=== PATIENT | female | born 1995 | race African-American/Black ===

== ENCOUNTER 2016-12-08 11:04 | Emergency (ER) | payer OTHER ==
[~2016-12-08] VITALS: Ht 170.2 cm; Wt 115.0 kg
[~2016-12-08 11:04] MED LIST: AMOX500T PO; MOME17I; PRED20 PO
[2016-12-08 11:05] VITALS: BP 135/65; PULSE 118; RESP 20; TEMP 98.5; O2SAT 99
[2016-12-08] MEDS ORDERED: PREN29TA PO (11:25)
[2016-12-08] MEDS ORDERED: FLINT2 CHEW (11:25)
--- NOTE | 2016-12-08 11:55 | PD ---
HPI Chief Complaint: Cold / Flu Symptoms Time Seen by Provider: 11:20 Travel History International Travel<30 days: No Contact w/Intl Traveler<30days: No Traveled to known affect area: No History of Present Illness HPI Patient is a 21-year-old female presenting to emergency for evaluation of nasal congestion, sore throat, body aches. Patient states her symptoms started on Tuesday. She denies any fevers, nausea, vomiting. She does report lower abdominal pain and cramping last night. Patient is 33 weeks by her own report. She recently moved here from [place] and has no OB to follow up with. She presents to the emergency Department unsure what to take for her cold symptoms. She has been applying Vicks vapor rub to her chest and taking Tylenol as needed. He states the body aches are worse at night when she is trying to rest. PFSH Past Medical History Medical History: Denies Significant Hx Diminished Hearing: No ?: : 0 Social History Alcohol Use: No Tobacco Use: Yes (1 PPD) Substance Use: Yes (MARIJUANA) Allergies-Medications (Allergen,Severity, Reaction): Coded Allergies: No Known Allergies (Unverified , 12/16/15) Reported Meds & Prescriptions Reported Meds & Active Scripts Active Reported Plus Iron 29-1 mg ( Vit-Iron Carbonyl) 1 Tab Tab 1 Tab PO DAILY Flintstones Complete (Iron/Minerals/Multivitamins) 60 Mg Tab 1 Tab CHEW DAILY Review of Systems Except as stated in HPI: all other systems reviewed are Neg General / Constitutional: No: Fever, Chills HENT: Positive: Sore Throat, Congestion, No: Headaches Cardiovascular: Positive: Tachycardia, No: Chest Pain or Discomfort Respiratory: No: Shortness of Breath Gastrointestinal: Positive: Abdominal Pain (lower abdominal cramping last night ), No: Nausea, Vomiting, Diarrhea Genitourinary: No: Dysuria Musculoskeletal: Positive: Myalgias, Cramping Physical Exam Narrative GENERAL: Obese, well-developed, alert female. Resting comfortably in no acute distress. SKIN: Focused skin assessment warm/dry. HEAD: Atraumatic. Normocephalic. EYES: Pupils equal and round. No scleral icterus. No injection or drainage. ENT: No nasal bleeding or discharge. Mucous membranes pink and moist. NECK: Trachea midline. No JVD. CARDIOVASCULAR: Tachycardic. No murmur appreciated. RESPIRATORY: No accessory muscle use. Clear to auscultation. Breath sounds equal bilaterally. GASTROINTESTINAL: Abdomen obese, non-tender, nondistended. Hepatic and splenic margins not palpable. Positive Bowel sounds. MUSCULOSKELETAL: No obvious deformities. No clubbing. No cyanosis. No edema. NEUROLOGICAL: Awake and alert. No obvious cranial nerve deficits. Motor grossly within normal limits. Normal speech. PSYCHIATRIC: Appropriate mood and affect; insight and judgment normal. Data Data Last Documented VS Vital Signs Date Time Temp Pulse Resp B/P Pulse Ox O2 Delivery O2 Flow Rate FiO2 12/08/16 11:05 98.5 118 20 135/65 99 Room Air [facility] Medical Decision Making Medical Screen Exam Complete: Yes Emergency Medical Condition: Yes Interpretation(s) Vital Signs Date Time Temp Pulse Resp B/P Pulse Ox O2 Delivery O2 Flow Rate FiO2 12/08/16 11:05 98.5 118 20 135/65 99 Room Air Differential Diagnosis Viral URI versus pharyngitis versus bronchitis versus viral syndrome versus PE versus other Narrative Course Patient is a 21-year-old female, 33 weeks presenting to the emergency department for evaluation of nasal congestion, sore throat and body aches. Symptoms started on Tuesday. Patient has not taken any acetaminophen today and is afebrile. She is well oxygenated on room air, resting in no acute distress. Lung sounds are clear to auscultation bilaterally. Physical examination and patient presentation is less likely due to pulmonary embolism. It was reassessed after patient had been resting for approximately 15 minutes and continued to be elevated. Patient reported lower abdominal cramping last night, she denies any vaginal bleeding or discharge. She recently moved to the area and has no head of design. She reports having routine care up until this point. Discussed with my attending physician. Patient was encouraged to continue acetaminophen as needed and as directed for fevers or body aches. She was encouraged to continue with symptomatic management. She was advised to obtain kuhk-sky-loarmmh nasal saline wash as well as Nasonex or Flonase and use as directed. She was encouraged to establish care with an head of design for continued routine care. Patient will be transferred to the OB ED at this time. Diagnosis Primary Impression: Upper respiratory infection Qualified Code: J06.9 - Upper respiratory tract infection, unspecified type Additional Impressions: Qualified Code: Z3A.33 - 33 weeks gestation of Tachycardia Referrals: [facility] 1 week Patient Instructions: General Instructions, Upper Respiratory Infection (ED) Additional Instructions: Establish care with an head of design Maintain adequate fluid intake Continue symptomatic management Take pwfc-hdh-omulsix acetaminophen as needed and as directed for body aches, fevers. Return to emergency department immediately for any new or worsening symptoms Med/Other Pt SpecificInfo: No Change to Meds Disposition: 01 DISCHARGE HOME Condition: Stable Hollie Garcia December 08, 2016 11:55
[2016-12-08] MEDS ORDERED: AFRI0.052 EACH NARE (13:40)
[2016-12-08] MEDS ORDERED: TYLE325T PO (13:40)
[2016-12-08] MEDS ORDERED: DEXT5LIQ12 PO (13:40)
[2016-12-08] MEDS ORDERED: ZITHTAB PO (13:40)
[2016-12-08] MEDS ORDERED: CLAR10CA3 PO (13:40)
--- NOTE | 2016-12-08 13:42 | PD ---
HPI Chief Complaint Head cold Date Seen: December 08, 2016 Time Seen: 13:15 Travel History International Travel<30 Days: No Contact w/Intl Traveler<30Days: No Known Affected Area: No History of Present Illness HPI Patient is a 21-year-old at 32 weeks and 5 days presents with cold symptoms. She reports that her symptoms started 2 days ago. They started with a sore throat and pain with swallowing. She then developed sinus congestion and neck pain and aches and pains throughout the rest of her body. She denies any leakage of fluid, vaginal bleeding, contractions. She endorses movement. She endorses some headache and feet swelling. She denies any fever, chills, vision changes, chest pain, shortness of breath, dysuria. Para: 0 : 1 History Past Medical History Narrative Medical Patient reports anemia diagnosed during this . Obstetric History Obstetric History Patient reports that this is her first . It has been uncomplicated thus far. Past Surgical History Surgical History: No Previous Surgery Family History Narrative Family History Patient reports a history of C-sections in her mother for HIV and advanced maternal age. Social History Narrative Social History Patient lives with her grandmother in [place]. Alcohol Use: No Tobacco Use: No Substance Abuse: No Allergies-Medications (Allergen,Severity, Reaction): Coded Allergies: No Known Allergies (Unverified , 12/16/15) Home Meds Active Scripts Acetaminophen (Tylenol)325 Mg Lht940 Mg PO Q4H PRN (pain) #30 TAB Ref 0 Prov:Giancarlo Bruce MD R1 12/08/16 Azithromycin (Zithromax Z-Norm)250 Mg Esvt279 Mg PO DIRECTED #1 DSPK Ref 0 500 MG (2 tabs) day 1, then 1 tab days 2-5. Prov:Giancarlo Bruce MD R1 12/08/16 Oxymetazoline Nasal (Afrin Nasal [place])0.05% Spray2-3 [place] EACH NARE Q12H PRN ( NASAL CONGESTION) #1 BOTTLE Ref 0 Prov:Giancarlo Bruce MD R1 12/08/16 Loratadine (Claritin)10 Mg Cap10 Mg PO DAILY #30 CAP Ref 0 Prov:Giancarlo Bruce MD R1 12/08/16 Dextromethorphan-Guaifenesin Liq (Tussin Dm Max Adult Liq)10-200 Mg/5 Ml Liq5 Ml PO Q4H PRN (CHEST CONGESTION AND/OR COUGH) #120 ML Ref 0 Prov:Giancarlo Bruce MD R1 12/08/16 Reported Medications Vit-Iron Carbonyl ( Plus Iron 29-1 mg)1 Tab Tab1 Tab PO DAILY #30 TAB Ref 0 12/08/16 Wlot-Ythnrfwv-Ibgykmws (Flintstones Complete)60 Mg Tab1 Tab CHEW DAILY #30 TAB Ref 0 12/08/16 Discontinued Scripts Mometasone Furoate (Nasonex)17 Gm Spray1 Spr NA DAILY #1 BOTTLE Prov:Jose York MD 12/16/15 Prednisone (Deltasone)20 Mg Tab20 Mg PO BID #10 TAB Prov:Jose York MD 12/16/15 Amoxicillin 500 Mg Zga390 Mg PO TID #30 CAP Prov:Jose York MD 12/16/15 Review of Systems General / Constitutional: No: Fever, Chills Eyes: No: Blurred Vision, Visual changes HENT: Headaches Cardiovascular: Edema (feet), No: Chest Pain or Discomfort Respiratory: Cough, No: Short of Breath Gastrointestinal: No: Nausea, Vomiting, Diarrhea, Abdominal Pain Genitourinary: No: Dysuria Musculoskeletal: Edema (feet) Skin: No Rash Neurologic: Headache Physical Exam Tachycardic but otherwise afebrile and vital signs stable within normal limits. Vital Signs Date Time Temp Pulse Resp B/P Pulse Ox O2 Delivery O2 Flow Rate FiO2 12/08/16 11:05 98.5 118 20 135/65 99 Room Air Narrative GENERAL: Well-nourished, well-developed obese female patient. SKIN: Warm and dry. HEAD: Normocephalic and atraumatic. EYES: No scleral icterus. No injection or drainage. ENT: No nasal drainage noted. Mucous membranes pink. Airway patent. No erythema or exudates of oropharynx. NECK: Supple, trachea midline. No JVD. CARDIOVASCULAR: Regular rate and rhythm without murmurs, gallops, or rubs. RESPIRATORY: Breath sounds equal bilaterally. No accessory muscle use. ABDOMEN/GI: Abdomen soft, non-tender, bowel sounds present, no rebound, no guarding Gravid to 33 weeks size EXTREMITIES: No cyanosis or edema. BACK: Nontender without obvious deformity. No CVA tenderness. NEUROLOGICAL: Awake and alert. Motor and sensory grossly within normal limits. Five out of 5 muscle strength in all muscle groups. Normal speech. Data Data Vital Signs Reviewed: Yes MDM Plan Patient is a 21-year-old at 32 weeks and 5 days presents with 2 days of cold symptoms. heart tracing category 1, reassuring. No contractions noted on monitor. 1. Viral URI Z-Norm Tylenol as needed Tussionex R Claritin Afrin Encourage by mouth hydration 2. Monitor vital signs Monitor labor status Monitor heart tones D/w Dr. Ibarra. Diagnosis Diagnosis: Primary Impression: Upper respiratory infection Qualified Code: J06.9 - Upper respiratory tract infection, unspecified type Additional Impressions: Qualified Code: Z3A.33 - 33 weeks gestation of Tachycardia Disposition: 01 DISCHARGE HOME Condition: Good Scripts Acetaminophen (Tylenol)325 Mg Ibo004 Mg PO Q4H PRN (pain) #30 TAB Ref 0 Prov:Giancarlo Bruce MD R1 12/08/16 Azithromycin (Zithromax Z-Norm)250 Mg Uome409 Mg PO DIRECTED #1 DSPK Ref 0 500 MG (2 tabs) day 1, then 1 tab days 2-5. Prov:Giancarlo Bruce MD R1 12/08/16 Oxymetazoline Nasal (Afrin Nasal [place])0.05% Spray2-3 [place] EACH NARE Q12H PRN ( NASAL CONGESTION) #1 BOTTLE Ref 0 Prov:Giancarlo Bruce MD R1 12/08/16 Loratadine (Claritin)10 Mg Cap10 Mg PO DAILY #30 CAP Ref 0 Prov:Giancarlo Bruce MD R1 12/08/16 Dextromethorphan-Guaifenesin Liq (Tussin Dm Max Adult Liq)10-200 Mg/5 Ml Liq5 Ml PO Q4H PRN (CHEST CONGESTION AND/OR COUGH) #120 ML Ref 0 Prov:Giancarlo Bruce MD R1 12/08/16 Referrals: [employer] 1 week Patient Instructions: General Instructions, Upper Respiratory Infection (ED) Additional Instructions: Establish care with an technical manager chemical plant Maintain adequate fluid intake Continue symptomatic management Take ofgx-jth-hnqiirg acetaminophen as needed and as directed for body aches, fevers. Return to emergency department immediately for any new or worsening symptoms Departure Forms: Tests/Procedures Giancarlo Bruce MD R1 December 08, 2016 13:42
[2016-12-29] MEDS ORDERED: BREAST PUMP1 MI1 (17:46)
== END 2016-12-08 14:10 | disposition home or self-care (01) ==
LOC: HOBED 11:04 → NEPK 12:19 → HOBED 14:10
DX: J06.9 Acute upper respiratory infection, unspecified (principal); O98.913 Unspecified maternal infectious and parasitic disease complicating pregnancy, third trimester; R00.0 Tachycardia, unspecified; F17.210 Nicotine dependence, cigarettes, uncomplicated; F12.90 Cannabis use, unspecified, uncomplicated; Z3A.33 33 weeks gestation of pregnancy
CPT/HCPCS: 99284

== ENCOUNTER 2017-01-28 10:31 | Inpatient (IN) | payer OTHER ==
[2017-01-28] VITALS (18 sets, daily range): BP systolic 100–139; BP diastolic 39–65; PULSE 56–97; RESP 16–20; TEMP 97.4–98.6; O2SAT 97–98
[~2017-01-28 10:31] MED LIST changes: +AFRI0.052 EACH NARE; -AMOX500T PO; +BREAST PUMP1 MI1; +CLAR10CA3 PO; +DEXT5LIQ12 PO; +FLINT2 CHEW; -MOME17I; -PRED20 PO; +PREN29TA PO; +TYLE325T PO
[2017-01-28] MEDS ORDERED: LACTATED RINGER'S 1000 ML INJ 1,000 ML IV ONE (13:11)
[2017-01-28 13:26] LABS: AUTOMATED NEUTROPHIL # 7.5 TH/MM3 (1.8-7.7); BASOPHIL % 0.4 % (0.0-2.0); EOSINOPHIL % 0.3 % (0.0-4.0); HEMATOCRIT 36.6 % (35.0-46.0); HEMO FLAGS DIFF FINAL; LYMPH % 18.7 % (9.0-44.0); LYMPHOCYTE # 1.9 TH/MM3 (1.0-4.8); MEAN CELL VOLUME 81.7 FL (80.0-100.0); MEAN CORPUSCULAR HEMOGLOBIN 26.6 PG (27.0-34.0); MEAN CORPUSCULAR HGB CONC 32.6 % (32.0-36.0); MONO % 5.8 % (0.0-8.0); NEUT % 74.8 % (16.0-70.0); PLATELET COUNT 306 TH/MM3 (150-450); RED BLOOD COUNT 4.47 MIL/MM3 (4.00-5.30); WHITE BLOOD COUNT 10.1 TH/MM3 (4.0-11.0)
[2017-01-28 13:31] LABS: BLOOD, URINE NEG (NEG); COMMENT (UR) CULT NOT INDICATED; CULTURE IF INDICATED CULT NOT INDICATED; GLUCOSE,URINE NEG (NEG); KETONE, URINE NEG (NEG); MUCUS URINE FEW /lpf (OCC); NITRITE,URINE NEG (NEG); SQUAMOUS EPITHELIAL CELL URINE 3 /hpf (0-5); URINE COLOR YELLOW (YELLW/STRAW)
[2017-01-28] MEDS: LACTATED RINGER'S 1000 ML INJ 1,000 ML IV SCH ×3 (13:41→21:09)
--- NOTE | 2017-01-28 13:53 | HHI.HP ---
HPI Chief Complaint Date Seen: Jan 28, 2017 Time Seen: 13:30 (Seth Bowles MD R1) Travel History International Travel<30 Days: No Contact w/Intl Traveler<30Days: No (Seth Bowles MD R1) History of Present Illness HPI 21-year-old at 40/0 weeks gestation with history of iron deficiency anemia presenting for due to transverse lie and polyhydramnios. She feels well. Denies vaginal bleeding, contractions, leakage of fluid. Endorses movement. (Seth Bowles MD R1) History Past Medical History Narrative Medical Iron deficiency anemia (Seth Bowles MD R1) Obstetric History Obstetric History G1 (Seth Bowles MD R1) Past Surgical History Surgical History: No Previous Surgery (Seth Bowles MD R1) Family History Family History: Negative (Seth Bowles MD R1) Social History Alcohol Use: No Tobacco Use: No Substance Abuse: No (Seth Bowles MD R1) Allergies-Medications (Allergen,Severity, Reaction): Coded Allergies: No Known Allergies (Unverified , 01/14/17) Home Meds Active Scripts Breast Pump 1 Mis Mis #1 Ea .route As Directed Prov:Giancarlo Bruce MD R1 12/29/16 Acetaminophen (Tylenol)325 Mg Xhh278 Mg PO Q4H PRN (pain) #30 TAB Ref 0 Prov:Giancarlo Bruce MD R1 12/08/16 Oxymetazoline Nasal (Afrin Nasal [place])0.05% Spray2-3 [place] EACH NARE Q12H PRN ( NASAL CONGESTION) #1 BOTTLE Ref 0 Prov:Giancarlo Bruce MD R1 12/08/16 Loratadine (Claritin)10 Mg Cap10 Mg PO DAILY #30 CAP Ref 0 Prov:Giancarlo Bruce MD R1 12/08/16 Dextromethorphan-Guaifenesin Liq (Tussin Dm Max Adult Liq)10-200 Mg/5 Ml Liq5 Ml PO Q4H PRN (CHEST CONGESTION AND/OR COUGH) #120 ML Ref 0 Prov:Giancarlo Bruce MD R1 12/08/16 Reported Medications Vit-Iron Carbonyl ( Plus Iron 29-1 mg)1 Tab Tab1 Tab PO DAILY #30 TAB Ref 0 12/08/16 Arlt-Jugbsnzc-Tlgyvhlo (Flintstones Complete)60 Mg Tab1 Tab CHEW DAILY #30 TAB Ref 0 12/08/16 Discontinued Scripts Azithromycin (Zithromax Z-Norm)250 Mg Jmwa757 Mg PO DIRECTED #1 DSPK Ref 0 500 MG (2 tabs) day 1, then 1 tab days 2-5. Prov:Giancarlo Bruce MD R1 12/08/16 Review of Systems Except as stated in HPI: all other systems reviewed are Neg (Seth Bowles MD R1) Physical Exam Narrative GENERAL: Well-nourished, well-developed patient. SKIN: Warm and dry. HEAD: Normocephalic and atraumatic. EYES: No scleral icterus. No injection or drainage. ENT: No nasal drainage noted. Mucous membranes pink. Airway patent. CARDIOVASCULAR: Regular rate and rhythm without murmurs, gallops, or rubs. RESPIRATORY: Breath sounds equal bilaterally. No accessory muscle use. ABDOMEN/GI: Abdomen soft, non-tender, no rebound, no guarding EFW 3800 g FHT's: Category: 1 Baseline: 120 Reactive: Y Variability: moderate Decels: N EXTREMITIES: No cyanosis or edema. NEUROLOGICAL: Awake and alert. Motor and sensory grossly within normal limits. Normal speech. (Seth Bowles MD R1) Data Data Vital Signs Reviewed: Yes Orders Us Ob Repeat/Fu(Growth) (01/28/17 ) Admit To Inpatient (01/28/17 ) Code Status (01/28/17 13:11) Vital Signs (Adult) .ON ADMISSION (01/28/17 13:11) Activity Oob Ad Sandra (01/28/17 13:11) Heart (01/28/17 13:11) Urinary Catheter Management DEYA.Q8H (01/28/17 13:11) ^ Preps (01/28/17 13:11) Scd / Brendon / Foot Pump DEYA.QSHIFT (01/28/17 13:11) ^ Ultrasound For Locatio (01/28/17 13:11) Diet Npo (01/28/17 Lunch) Lactated Ringer's 1000 Ml Inj (Lr 1000 M (01/28/17 13:11) Lactated Ringer's 1000 Ml Inj (Lr 1000 M (01/28/17 13:41) Cefazolin 2 Gm Premix (Ancef 2 Gm Premix (01/28/17 14:15) Citric Acid-Sodium Citrate Liq (Bicitra (01/28/17 14:45) Type And Screen (01/28/17 13:11) Complete Blood Count With Diff (01/28/17 13:11) Urinalysis - C+S If Indicated (01/28/17 13:11) Inpatient Certification (01/28/17 ) Specimen To Be Collected PRN (01/28/17 13:11) Labs Laboratory Tests Test 01/28/17 13:05 White Blood Count 10.1 Red Blood Count 4.47 Hemoglobin 11.9 Hematocrit 36.6 Mean Corpuscular Volume 81.7 Mean Corpuscular Hemoglobin 26.6 Mean Corpuscular Hemoglobin 32.6 Concent Red Cell Distribution Width 16.0 Platelet Count 306 Mean Platelet Volume 7.7 Neutrophils (%) (Auto) 74.8 Lymphocytes (%) (Auto) 18.7 Monocytes (%) (Auto) 5.8 Eosinophils (%) (Auto) 0.3 Basophils (%) (Auto) 0.4 Neutrophils # (Auto) 7.5 Lymphocytes # (Auto) 1.9 Monocytes # (Auto) 0.6 Eosinophils # (Auto) 0.0 Basophils # (Auto) 0.0 CBC Comment DIFF FINAL Differential Comment Urine Color YELLOW Urine Turbidity CLEAR Urine pH 6.0 Urine Specific [place] 1.018 Urine Protein 30 Urine Glucose (UA) NEG Urine Ketones NEG Urine Occult Blood NEG Urine Nitrite NEG Urine Bilirubin NEG Urine Urobilinogen LESS THAN 2.0 Urine Leukocyte Esterase NEG Urine RBC LESS THAN 1 Urine WBC 3 Urine Squamous Epithelial 3 Cells Urine Mucus FEW Microscopic Urinalysis Comment CULT NOT INDICATED (Seth Bowles MD R1) Assessment/Plan Problem List: (1) Transverse lie (2) Polyhydramnios Assessment and Plan 21-year-old at 40/0 weeks gestation presenting for #1 IUP Category 1 tracing, reassuring #2 GBS negative #3 transverse lie with polyhydramnios Ultrasound done today showing transverse lie with back facing upward ( anteriorly) and MEGHAN of 21 - Admit to labor and delivery - Standard preoperative care for - Consents signed dw Dr. Ortega, Dr. Bruce (Seth Bowles MD R1) Collaborating MD Comments Patient at 40 weeks, with macrosomia and back up transverse lie. Plan c- section due to malpresentation. (Chiara Ortega MD) Seth Bowles MD R1 Jan 28, 2017 13:53 Chiara Ortega MD Jan 28, 2017 17:20
[2017-01-28] MEDS ORDERED: ceFAZolin 2 GM PREMIX 50 ML IV SCH (14:15)
[2017-01-28] MEDS ORDERED: OXYTOCIN 10 UNIT/ML AMP ONE (14:24)
[2017-01-28] MEDS ORDERED: CITRIC ACID-SODIUM CITRATE LIQ 30 ML UDC PO SCH (14:45)
[2017-01-28] MEDS ORDERED: EPIDURAL-DIPHENHYDRAMINE HCL 50 MG/ML VIAL IV PUSH PRN (14:50)
[2017-01-28] MEDS ORDERED: EPIDURAL-NALOXONE HCL 0.4 MG/ML AMP IV PRN (14:50)
[2017-01-28] MEDS ORDERED: EPIDURAL-DO NOT ADMINISTER ANTICOAGULANTS PRN (14:50)
[2017-01-28] MEDS ORDERED: EPIDURAL-NO SYSTEMIC NARCOTICS PRN (14:50)
[2017-01-28] MEDS ORDERED: MORPHINE SULFATE PF 10 MG/10 ML VIAL ONE (15:58)
[2017-01-28] MEDS ORDERED: SODIUM CHLORIDE 0.9% FLUSH 10 ML FLUSH IV FLUSH PRN (16:00)
[2017-01-28] MEDS ORDERED: ACETAMINOPHEN 325 MG TAB PO PRN (16:00)
[2017-01-28] MEDS ORDERED: KETOROLAC TROMETHAMINE 60 MG/2 ML (IM) VIAL IM PRN ×2 (16:00)
[2017-01-28] MEDS ORDERED: OXYTOCIN 30 UNITS-500ML PREMIX 500 ML IV ONE (16:00)
[2017-01-28] MEDS ORDERED: ZOLPIDEM TARTRATE 5 MG TAB PO PRN (16:00)
[2017-01-28] MEDS: ONDANSETRON HCL 4 MG/2 ML VIAL IV PUSH PRN ×2 (16:23→21:08)
[2017-01-28] MEDS ORDERED: OXYTOCIN 30 UNITS-500ML PREMIX 500 ML ONE (16:36)
--- NOTE | 2017-01-28 16:38 | PD.OB.DELI ---
Procedure Note Section Procedure Pre Op Diagnosis: (1) Transverse lie Pre Op Diagnosis 40 weeks gestation Post Op Diagnosis: Performed by Chiara Ortega Procedure: Primary Low Transverse Sec Indication for delivery: malposition Informed consent obtained: For anesthesia, For procedure Confirmed correct: Time-out taken Anesthesia: Spinal Medication prior to procedure: Antacids, Antibiotics, IV Monitoring during procedure: Blood pressure monitoring, storage engineer, Pulse oximetry Urinary catheter: Inserted using sterile technique Sterile preparation: Duraprep Position: Supine with wedge to left side Operative Features Skin Incision: Pfannenstiel Uterine Incision: Low transverse w/knife / blunt ext Membranes Ruptured: Artificially, Amount of liquid (copious), Appearance of fluid (clear) Presentation: Transverse lie Time of : 15:19 Delivery of infant: Uneventful, Other (45 second cord clamping delay) Infant: Male One Minute : 8 Five Minute : 9 Weight: 4405 Status of : Viable Placenta delivered: Intact Estimated blood loss: 600 Procedure tolerated: Well Maternal Condition: Stable Condition: Stable (vaccuum utilized with single pull for head delivery) Chiara Ortega MD Jan 28, 2017 16:38
[2017-01-28] MEDS ORDERED: SODIUM CHLORIDE 0.9% FLUSH 10 ML FLUSH IV FLUSH SCH (21:00)
[2017-01-29] VITALS: BP 113/56; PULSE 76; RESP 20; TEMP 98.4
[2017-01-29 01:20] VITALS: RESP 16
[2017-01-29] MEDS ORDERED: OXYTOCIN 30 UNITS-500ML PREMIX 500 ML IV PRN (02:00)
[2017-01-29] MEDS: LACTATED RINGER'S 1000 ML INJ 1,000 ML IV SCH ×2 (03:01→06:57)
[2017-01-29] MEDS: IBUPROFEN 600 MG TAB PO PRN ×4 (03:38→23:59)
[2017-01-29] MEDS: ONDANSETRON HCL 4 MG/2 ML VIAL IV PUSH PRN (03:38)
[2017-01-29 04:00] VITALS: BP 106/55; PULSE 78; RESP 20; TEMP 98.4
[2017-01-29] MEDS: EPIDURAL-DIPHENHYDRAMINE HCL 50 MG CAP PO PRN ×2 (06:24→12:21)
--- NOTE | 2017-01-29 07:53 | HHI.OB ---
Subjective Post Operative Day: 1 Remarks Patient is a 21-year-old delivered at 39 weeks and 6 days. Patient is day 1 after primary for backup transverse lie. Patient reports incisional pain but that her pain is well-controlled. Patient reports not yet eating and not much drinking. She reports a few episodes of nausea and vomiting. Patient reports bleeding like a period. Patient has not passed gas or bowel movements. Patient is walking without lower extremity pain or shortness of breath or chest pain. Patient reports desire for contraception with condoms and bottle and breast-feeding. Objective Vitals/I&O Vital Signs Date Time Temp Pulse Resp B/P Pulse Ox O2 Delivery O2 Flow Rate FiO2 01/29/17 04:00 98.4 01/29/17 04:00 78 20 106/55 01/29/17 01:20 16 01/29/17 00:00 98.4 76 20 113/56 01/28/17 20:00 97.9 56 20 103/63 01/28/17 17:15 75 20 139/65 01/28/17 17:15 97.4 01/28/17 16:45 98.1 63 18 129/58 97 01/28/17 16:30 60 16 135/60 98 01/28/17 16:15 64 130/64 01/28/17 16:15 16 98 01/28/17 15:59 18 01/28/17 15:59 98.2 97 01/28/17 15:58 92 01/28/17 15:57 125/60 01/28/17 13:50 94 01/28/17 13:45 89 01/28/17 13:40 84 01/28/17 13:35 89 01/28/17 13:30 82 01/28/17 13:25 85 01/28/17 13:20 83 01/28/17 13:16 89 114/55 01/28/17 13:15 98.6 20 01/28/17 13:15 84 01/28/17 13:12 97 100/39 Result Diagram: 01/28/17 1305 Objective Remarks GENERAL: Well-nourished, well-developed patient. CARDIOVASCULAR: Regular rate and rhythm without murmurs, gallops, or rubs. RESPIRATORY: Breath sounds equal bilaterally. No accessory muscle use. ABDOMEN/GI: Abdomen soft, non-tender, bowel sounds present. Incision: Clean, dry and intact. Fundus: Firm, non-tender at umbilicus. GENITOURINARY: Moderate bleeding. EXTREMITIES: No cyanosis or edema, non-tender, without signs of DVT. Medications and IVs Current Medications Medications (Trade) Dose Ordered Sig/Jasmyne Route Start Time Stop Time Status Last Admin Lactated Ringer's 1,000 ml @ 150 mls/hr Q6H40M IV 01/28/17 13:41 01/28/17 13:41 (Lr 1000 ml Inj) 1,000 ml @ 100 mls/hr Q10H IV 01/28/17 20:57 01/29/17 16:56 01/28/17 21:09 (NS Flush) 2 ml BID IV FLUSH 01/28/17 21:00 01/28/17 21:08 (NS Flush) 2 ml UNSCH PRN IV FLUSH 01/28/17 16:00 01/29/17 03:39 (Mylicon Chew) 80 mg QID PRN PO 01/28/17 16:00 (Tylenol) 650 mg Q6H PRN PO 01/28/17 16:00 (Motrin) 600 mg Q6H PRN PO 01/28/17 16:00 01/29/17 03:38 (Toradol Inj) 30 mg Q6H PRN IM 01/28/17 16:00 01/29/17 15:59 (Percocet 5-325 Mg) 1 tab Q4H PRN PO 01/28/17 16:00 (Percocet 5-325 Mg) 2 tab Q4H PRN PO 01/28/17 16:00 (Lisette-Colace) 2 tab Q12H PRN PO 01/28/17 16:00 (Ambien) 5 mg HS PRN PO 01/28/17 16:00 (M-M-R Ii Inj) 0.5 ml ONCE ONCE SQ 01/29/17 16:00 01/29/17 16:01 (Boostrix Inj) 0.5 ml ONCE ONCE IM 01/29/17 16:00 01/29/17 16:01 (Zofran Inj) 4 mg Q6H PRN IV PUSH 01/28/17 16:00 01/29/17 03:38 Miscellaneous Information NO SYSTEMIC NARCOTICS TO BE GIVEN FO... UNSCH PRN .XX 01/28/17 14:50 01/29/17 14:49 (Narcan Inj) 0.4 mg UNSCH PRN IV 01/28/17 14:50 01/29/17 14:49 (Benadryl Inj) 25 mg Q6H PRN IV PUSH 01/28/17 14:50 01/29/17 14:49 (Benadryl) 50 mg Q6H PRN PO 01/28/17 14:50 01/29/17 14:49 01/29/17 06:24 Miscellaneous Information ALL NURSING DEPARTMENTS UNSCH PRN .XX 01/28/17 14:50 01/29/17 14:49 Assessment/Plan Problem List: (1) Transverse lie (2) Polyhydramnios (3) S/P Assessment and Plan 21-year-old at 39/6 weeks gestation POD1 s/p primary for back up transverse lie. Patient was counseled to do 6 weeks of pelvic rest. Patient was counseled to follow up for incision check in one week and again in 6 weeks. Patient requested follow-up and plans contraception with condoms. --AF VSS --Continue routine care --Motrin and Percocet when necessary for pain --Encourage OOB --Pelvic rest for 6 weeks will need follow-up appointment at that time as well as one week incision check --Contraception: Condoms --Anticipate discharge in [address] Arrington d/w Dr. Ortega Discharge Planning Anticipate discharge in 2 days. Giancarlo Bruce MD R1 Jan 29, 2017 07:53
[2017-01-29 08:30] VITALS: BP 118/54; PULSE 87; RESP 16; TEMP 98.4
[2017-01-29] MEDS: DOCUSATE SODIUM 50 MG/SENNA 8.6 MG TAB PO PRN ×2 (10:24→21:47)
[2017-01-29] MEDS ORDERED: DIPHTH/TETANUS/ACEL PERTUSSIS (BOOSTER) 0.5 ML VIAL/PFS IM ONE (16:00)
[2017-01-29] MEDS ORDERED: MEASLES, MUMPS, RUBELLA VACCINE 0.5 ML VIAL SQ ONE (16:00)
[2017-01-29] MEDS: oxyCODONE/ACETAMINOPHEN 5 MG/325 MG TAB PO PRN ×3 (17:03→23:59)
[2017-01-29 21:00] VITALS: BP 118/54; PULSE 86; RESP 18; TEMP 98.5
[2017-01-30] MEDS: IBUPROFEN 600 MG TAB PO PRN ×3 (05:21→18:41)
[2017-01-30] MEDS: oxyCODONE/ACETAMINOPHEN 5 MG/325 MG TAB PO PRN ×3 (05:21→18:42)
--- NOTE | 2017-01-30 07:43 | HHI.OB ---
Subjective Post Operative Day: 2 Remarks Postoperative day number 2. AFVSS overnight. Having some pain, but better with medication. Incision not draining. Decreased lochia. Denies dysuria. No breast tenderness. She is feeding the baby via formula. Appetite good. No nausea or vomiting. Endorses flatus. Endorses bowel movement. Ambulating well. Denies calf pain, shortness of breath, or cough. Otherwise, she is doing well this morning and has no other complaints. Objective Vitals/I&O Vital Signs Date Time Temp Pulse Resp B/P Pulse Ox O2 Delivery O2 Flow Rate FiO2 01/29/17 21:00 98.5 86 18 118/54 01/29/17 08:30 98.4 87 16 01/29/17 08:30 118/54 Result Diagram: 01/28/17 1305 Objective Remarks GENERAL: Well-nourished, well-developed patient. CARDIOVASCULAR: Regular rate and rhythm without murmurs, gallops, or rubs. RESPIRATORY: Breath sounds equal bilaterally. No accessory muscle use. ABDOMEN/GI: Abdomen soft, non-tender, bowel sounds present. Incision: Clean, dry and intact. Fundus: Firm, non-tender at umbilicus. GENITOURINARY: Moderate bleeding. EXTREMITIES: No cyanosis or edema, non-tender, without signs of DVT. Medications and IVs Current Medications Medications (Trade) Dose Ordered Sig/Jasmyne Route Start Time Stop Time Status Last Admin (Lr 1000 ml Inj) 1,000 ml @ 150 mls/hr Q6H40M IV 01/28/17 13:41 01/28/17 13:41 (NS Flush) 2 ml BID IV FLUSH 01/28/17 21:00 01/28/17 21:08 (NS Flush) 2 ml UNSCH PRN IV FLUSH 01/28/17 16:00 01/29/17 03:39 (Mylicon Chew) 80 mg QID PRN PO 01/28/17 16:00 (Tylenol) 650 mg Q6H PRN PO 01/28/17 16:00 (Motrin) 600 mg Q6H PRN PO 01/28/17 16:00 01/30/17 05:21 (Percocet 5-325 Mg) 1 tab Q4H PRN PO 01/28/17 16:00 01/29/17 23:59 (Percocet 5-325 Mg) 2 tab Q4H PRN PO 01/28/17 16:00 01/30/17 05:21 (Lisette-Colace) 2 tab Q12H PRN PO 01/28/17 16:00 01/29/17 21:47 (Ambien) 5 mg HS PRN PO 01/28/17 16:00 (Zofran Inj) 4 mg Q6H PRN IV PUSH 01/28/17 16:00 01/29/17 03:38 Assessment/Plan Problem List: (1) Transverse lie (2) Polyhydramnios (3) S/P Assessment and Plan 21-year-old POD2 s/p primary for back up transverse lie. Patient was counseled to do 6 weeks of pelvic rest. Patient was counseled to follow up for incision check in one week and again in 6 weeks. Patient requested follow-up and plans contraception with condoms. --AF VSS --Continue routine care --Motrin and Percocet when necessary for pain --Encourage OOB --Pelvic rest for 6 weeks will need follow-up appointment at that time as well as one week incision check --Contraception: Condoms --Anticipate discharge in 1 day [facility] OB attending Discharge Planning Anticipate discharge tomorrow Marino Arrington MD R1 Jan 30, 2017 07:43
[2017-01-30 08:30] VITALS: BP 119/55; PULSE 88; RESP 18; TEMP 98.2
[2017-01-30] MEDS: DOCUSATE SODIUM 50 MG/SENNA 8.6 MG TAB PO PRN (12:05)
[2017-01-30] MEDS: SIMETHICONE 80 MG CHEWABLE TAB PO PRN ×2 (12:05→18:42)
[2017-01-30 20:45] VITALS: BP 119/64; PULSE 79; RESP 18; TEMP 97.8
[2017-01-31] MEDS: oxyCODONE/ACETAMINOPHEN 5 MG/325 MG TAB PO PRN ×2 (00:35→08:08)
[2017-01-31] MEDS: DOCUSATE SODIUM 50 MG/SENNA 8.6 MG TAB PO PRN (00:35)
[2017-01-31] MEDS: IBUPROFEN 600 MG TAB PO PRN ×2 (00:35→08:08)
[2017-01-31 08:12] VITALS: BP 128/74; PULSE 73; RESP 16; TEMP 97.8
--- NOTE | 2017-01-31 08:30 | MP ---
cc: ALMAS SALINAS M.D. DATE OF SURGERY: 01/28/2017 PREOPERATIVE DIAGNOSIS 1. 40 weeks gestation. 2. Back up transverse lie. POSTOPERATIVE DIAGNOSIS 1. 40 weeks gestation. 2. Back up transverse lie. PROCEDURE Primary low transverse section without extension. SURGEON Almas Salinas CAMP ASSISTANT Giancarlo Bruce MEDICATIONS Ancef two grams was given preoperatively. ANESTHESIA Spinal. PATHOLOGY No pathology. DRAINS Nava to gravity. COUNTS Correct x3. FINDINGS 1. Normal uterus, tubes and ovaries. 2. Clear copious amniotic fluid. 3. male, Apgars 8 and 9, weight 4405 grams, born at 1519 in a back up transverse lie with a 45-second cord clamping delay. 4. Hemostasis noted after the case. DESCRIPTION OF PROCEDURE The patient was taken back to the operating room, prepped and draped in the usual sterile fashion, placed in dorsal supine position with a wedge to her left side. After adequate anesthetic was obtained a Pfannenstiel incision was made in the skin, taken down to the fascia. The fascia was nicked in the midline, extended bilaterally and taken off the rectus muscles. The rectus muscles were divided in the midline. The anterior peritoneum was entered and extended superiorly and inferiorly. The vesicouterine peritoneum was noted to be well away from the field. A transverse hysterotomy incision was made and bluntly extended bilaterally. The bag of water was broken and copious clear fluid was obtained. The head was gently pushed into the vertex position and a vacuum was placed which allowed delivery of the head without any difficulties. The rest of the body was delivered and handed off to the resuscitation team after the cord clamping delay. The placenta was delivered intact spontaneously and the endometrial cavity was cleared with a moist laparotomy sponge. The hysterotomy incision was repaired using running locking #1 chromic suture with good hemostasis at closure. The gutters were rendered free of all blood and clot material. The fascia was closed with #1 PDS in a running fashion. The subcutaneous tissue was made hemostatic with the Bovie and closed with a running suture of 3-0 plain gut. A subcuticular suture of 3-0 Monocryl was placed in the skin. The patient tolerated the procedure well. She has taken back to the recovery room in good condition. MD CAROLINA Agarwal/BRIAN /4:45 PM /8:24 AM
--- NOTE | 2017-01-31 08:54 | HHI.OB ---
Subjective Post Operative Day: 3 Remarks Patient is a 21-year-old G 1 P 1 delivered at 39 weeks and 6 days. Patient is day 3 after primary for back up transverse lie. Patient's pain is well-controlled. Patient reports eating and drinking without any nausea or vomiting. Patient reports minimal bleeding. Patient has passed gas and bowel movements. Patient is walking without lower extremity pain, chest pain, or shortness of breath. Patient denied any feelings of depression. Patient reports desire for contraception with condoms and bottle-and breast-feeding. Patient requested physician practice consultant assistance. Objective Vitals/I&O Vital Signs Date Time Temp Pulse Resp B/P Pulse Ox O2 Delivery O2 Flow Rate FiO2 01/31/17 08:12 97.8 73 16 128/74 01/30/17 20:45 119/64 01/30/17 20:45 97.8 79 18 Result Diagram: 01/28/17 1305 Objective Remarks GENERAL: Well-nourished, well-developed patient. CARDIOVASCULAR: Regular rate and rhythm without murmurs, gallops, or rubs. RESPIRATORY: Breath sounds equal bilaterally. No accessory muscle use. ABDOMEN/GI: Abdomen soft, non-tender, bowel sounds present. Incision: Clean, dry and intact. Fundus: Firm, non-tender at umbilicus. GENITOURINARY: Light bleeding. EXTREMITIES: No cyanosis or edema, non-tender, without signs of DVT. Medications and IVs Current Medications Medications (Trade) Dose Ordered Sig/Jasmyne Route Start Time Stop Time Status Last Admin (Lr 1000 ml Inj) 1,000 ml @ 150 mls/hr Q6H40M IV 01/28/17 13:41 01/28/17 13:41 (NS Flush) 2 ml BID IV FLUSH 01/28/17 21:00 01/28/17 21:08 (NS Flush) 2 ml UNSCH PRN IV FLUSH 01/28/17 16:00 01/29/17 03:39 (Mylicon Chew) 80 mg QID PRN PO 01/28/17 16:00 01/30/17 18:42 (Tylenol) 650 mg Q6H PRN PO 01/28/17 16:00 (Motrin) 600 mg Q6H PRN PO 01/28/17 16:00 01/31/17 08:08 (Percocet 5-325 Mg) 1 tab Q4H PRN PO 01/28/17 16:00 01/31/17 08:08 (Percocet 5-325 Mg) 2 tab Q4H PRN PO 01/28/17 16:00 01/31/17 00:35 (Lisette-Colace) 2 tab Q12H PRN PO 01/28/17 16:00 01/31/17 00:35 (Ambien) 5 mg HS PRN PO 01/28/17 16:00 (Zofran Inj) 4 mg Q6H PRN IV PUSH 01/28/17 16:00 01/29/17 03:38 Assessment/Plan Problem List: (1) Transverse lie (2) Polyhydramnios (3) S/P Assessment and Plan 21-year-old POD 3 s/p primary for back up transverse lie. Patient was counseled to do 6 weeks of pelvic rest. Patient was counseled to follow up for incision check in one week and again in 6 weeks. Patient requested follow-up and plans contraception with condoms. --AF VSS --Continue routine care --Motrin and Percocet when necessary for pain --Encourage OOB --Pelvic rest for 6 weeks will need follow-up appointment at that time as well as one week incision check --Contraception: Condoms --Anticipate discharge today d/w Dr. Lewis Discharge Planning Anticipate discharge today Giancarlo Bruce MD R1 Jan 31, 2017 08:54
[2017-01-31] MEDS ORDERED: OXYC1TAB63 PO (08:58)
[2017-01-31] MEDS ORDERED: IBUP-232 PO (08:58)
--- NOTE | 2017-01-31 09:00 | HHI.DCPOC ---
Discharge Care Plan Diagnosis: (1) (2) Transverse lie (3) S/P Report Symptoms to Your Doctor -Temperature above 100.5 degrees -Redness, of incision or excessive or foul smelling drainage -Unusual pain or calf pain -Increased vaginal bleeding -Painful or difficulty urinating -Feelings of extreme sadness or anxiety after 2 weeks Goals to Promote Your Health * To prevent worsening of your condition and complications, please follow-up in clinic. * To maintain your health at the optimal level, please exercise regularly, eat a well-balanced diet, and stay safe. Directions to Meet Your Goals Take your medications as prescribed Follow your dietary instruction Follow activity as directed Ensure plenty of rest for recovery Drink fluids for hydration Keep your appointments as scheduled Take your immunizations and boosters as scheduled If your symptoms worsen call your PCP, if no PCP go to Urgent Care Center or Emergency Room Smoking is Dangerous to Your Health. Avoid second hand smoke Call the 24-hour crisis hotline for domestic abuse at Giancarlo Bruce MD R1 Jan 31, 2017 09:00
== END 2017-01-31 11:31 | disposition home or self-care (01) | DRG 765 ==
LOC: HPND 10:31 → H2EB 11:18 → H1EA 17:05
PROVIDERS: ADMIT Obstetrics & Gynecology Obstetrics; ATTEND Obstetrics & Gynecology Obstetrics
PROC: 10D00Z1 Extraction of Products of Conception, Low, Open Approach (ICD-10-PCS; principal; 2017-01-28)
DX: O32.2XX0 Maternal care for transverse and oblique lie, not applicable or unspecified (principal); O40.3XX0 Polyhydramnios, third trimester, not applicable or unspecified; O99.013 Anemia complicating pregnancy, third trimester; D50.9 Iron deficiency anemia, unspecified; Z3A.40 40 weeks gestation of pregnancy; O36.63X0 Maternal care for excessive fetal growth, third trimester, not applicable or unspecified; R11.2 Nausea with vomiting, unspecified; Z37.0 Single live birth
CPT/HCPCS: 59025; 76816; 81001; 85025; 86850; 86900; 86901; J0690; J2274; J2405; J2590; J7120; Q0163

== ENCOUNTER 2017-03-07 11:00 | Emergency (ER) | payer OTHER ==
[~2017-03-07] VITALS: Ht 165.1 cm; Wt 120.0 kg
[~2017-03-07 11:00] MED LIST changes: -DEXT5LIQ12 PO; +IBUP-232 PO; +LIDO2GEL11 TOPICAL; +NIFE1TAB85 PO; +OXYC1TAB63 PO
[2017-03-07 11:03] VITALS: BP 141/88; PULSE 64; RESP 15; TEMP 98.1; O2SAT 98
--- NOTE | 2017-03-07 11:13 | PD ---
Physical Exam Date Seen by Provider: Mar 07, 2017 Time Seen by Provider: 11:10 Narrative Pt presents c/o vaginal bleeding. Pt is 1 month post . She states she has been bleeding since delivery. She is followed at [facility]. Pt states she has had cramping, denies fevers, chills, nausea or vomiting. VSS, awaiting bed placement. Data Data Last Documented VS Vital Signs Date Time Temp Pulse Resp B/P (MAP) Pulse Ox O2 Delivery O2 Flow Rate FiO2 03/07/17 11:03 98.1 64 15 141/88 (105) 98 MDM Supervised Visit with PJ: Hollie Khoury Mar 07, 2017 11:12
--- NOTE | 2017-03-07 11:40 | PD ---
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 has had bleeding since a month ago. Bleeding seemed to stop and cleared until yesterday when he developed new bleeding and cramping. Denies any other medical issues. Possibility of . No chest pain. No SOB. No pain at this time. Per patient the bleeding is heavy. No discharge. No BM or urinary symptoms. Has not seen [employer] ASSEMBLY SUPERVISOR. PFSH Past Medical History Diminished Hearing: No ?: Unknown : 0 Social History Alcohol Use: No Tobacco Use: No Substance Use: Yes (MARIJUANA) Allergies-Medications (Allergen,Severity, Reaction): Coded Allergies: No Known Allergies (Unverified , 03/07/17) Reported Meds & Prescriptions Reported Meds & Active Scripts Active Procardia XL (Nifedipine) 30 Mg Tab 30 Mg PO DAILY Plus Iron 29-1 mg ( Vit-Iron Carbonyl) 1 Tab Tab 1 Tab PO DAILY Lidocaine Topical (Lidocaine HCl) 2 % Jel 1 Applic TOPICAL QID Ibuprofen 600 Mg Tab 600 Mg PO Q6H PRN Breast Pump (Device) 1 Mis Mis 1 Ea .ROUTE DIRECTED Review of Systems Except as stated in HPI: all other systems reviewed are Neg Physical Exam Narrative GENERAL: SKIN: Warm and dry. HEAD: Atraumatic. Normocephalic. EYES: Pupils equal and round. No scleral icterus. No injection or drainage. ENT: No nasal bleeding or discharge. Mucous membranes pink and moist. Tongue is midline. No uvula deviation NECK: Trachea midline. No JVD. CARDIOVASCULAR: Regular rate and rhythm. No murmurs, S3, S4. RESPIRATORY: No accessory muscle use. Clear to auscultation. Breath sounds equal bilaterally. GASTROINTESTINAL: Abdomen soft, non-tender, nondistended. Hepatic and splenic margins not palpable. Pelvic exam: Reveals vaginal bleeding minimal but no adnexal tenderness or mass. No infection. MUSCULOSKELETAL: Extremities without clubbing, cyanosis, or edema. No obvious deformities. Full ROM of the upper and lower extremities bilaterally. 2+ pulses bilaterally. NEUROLOGICAL: Awake and alert. No obvious cranial nerve deficits. Motor grossly within normal limits. Five out of 5 muscle strength in the arms and legs. Normal speech. PSYCHIATRIC: Appropriate mood and affect; insight and judgment normal. Data Data Last Documented VS Vital Signs Date Time Temp Pulse Resp B/P (MAP) Pulse Ox O2 Delivery O2 Flow Rate FiO2 03/07/17 11:03 98.1 64 15 141/88 (105) 98 Orders Orders Complete Blood Count With Diff (03/07/17 11:21) Urinalysis - C+S If Indicated (03/07/17 11:21) Ed Urine Pregnancytest Poc (03/07/17 11:21) Gc And Chlamydia Pcr (03/07/17 11:36) Wet Prep Profile (03/07/17 11:36) Us Pelvis Comp W Doppler (03/07/17 ) Labs Laboratory Tests Test 03/07/17 11:40 03/07/17 12:10 White Blood Count 6.6 TH/MM3 Red Blood Count 4.60 MIL/MM3 Hemoglobin 12.0 GM/DL Hematocrit 36.6 % Mean Corpuscular Volume 79.6 FL Mean Corpuscular Hemoglobin 26.0 PG Mean Corpuscular Hemoglobin Concent 32.7 % Red Cell Distribution Width 14.9 % Platelet Count 252 TH/MM3 Mean Platelet Volume 8.1 FL Neutrophils (%) (Auto) 53.4 % Lymphocytes (%) (Auto) 39.3 % Monocytes (%) (Auto) 5.6 % Eosinophils (%) (Auto) 1.4 % Basophils (%) (Auto) 0.3 % Neutrophils # (Auto) 3.5 TH/MM3 Lymphocytes # (Auto) 2.6 TH/MM3 Monocytes # (Auto) 0.4 TH/MM3 Eosinophils # (Auto) 0.1 TH/MM3 Basophils # (Auto) 0.0 TH/MM3 CBC Comment DIFF FINAL Differential Comment Urine Color LIGHT-RED Urine Turbidity CLEAR Urine pH 5.5 Urine Specific [place] 1.021 Urine Protein 30 mg/dL Urine Glucose (UA) NEG mg/dL Urine Ketones NEG mg/dL Urine Occult Blood LARGE Urine Nitrite NEG Urine Bilirubin NEG Urine Urobilinogen LESS THAN 2.0 MG/DL Urine Leukocyte Esterase SMALL Urine RBC /hpf Urine WBC 7 /hpf Urine Squamous Epithelial Cells 1 /hpf Urine Mucus FEW /lpf Microscopic Urinalysis Comment CULT NOT INDICATED Clue Cells (Wet Prep) NONE SEEN Vaginal Trichomonas (Wet Prep) NONE SEEN Vaginal Yeast (Wet Prep) NONE SEEN [facility] Medical Decision Making Medical Screen Exam Complete: Yes Emergency Medical Condition: Yes Medical Record Reviewed: Yes Interpretation(s) CBC Diagram 03/07/17 11:40 UA shows possible UTI US negative for acute disease. some cervical fluid but no retained products of conception. Differential Diagnosis Vaginal bleed vs dysmenorrhea vs menorrhagia vs miscarriage vs vs UTI Narrative Course 21 yo female here for evaluation of vaginal bleeding. Patient was properly examined and found to have signs of symptoms concerning for menorrhagia. Likely first menses post . Will do labs and imaging. PELVIC exam and labs and imaging were reassuring. This appears to be first menses after . No sign of acute disease. Ultrasound did not show any sign of retained products of conception. Patient was reassured. At this time recommendations is for patient follow-up with [employer]BL[employer] SUPERVISOR. Patient was told that her periods my be more irregular for some time. She is to follow-up with [employer]BL[employer] SUPERVISOR. See ED for any worsening symptoms. Diagnosis Primary Impression: Menorrhagia Qualified Codes: N92.2 - Excessive menstruation at puberty Patient Instructions: General Instructions Additional Instructions: Your labs and imaging were reassuring. It seems you are currently having your first menses after . Follow up with [employer] ASSEMBL[employer] SUPERVISOR for possible control to help with periods if needed. Otherwise motrin or tylenol for pain. your periods might be irregular from what they were before for a few months which is normal. See ED if any worsening symptoms. Med/Other Pt SpecificInfo: No Change to Meds Disposition: 01 DISCHARGE HOME Condition: Stable Parth Nazario Mar 07, 2017 11:40
[2017-03-07 12:14] LABS: BLOOD, URINE LARGE (NEG); COMMENT (UR) CULT NOT INDICATED; CULTURE IF INDICATED CULT NOT INDICATED; GLUCOSE,URINE NEG (NEG); KETONE, URINE NEG (NEG); MUCUS URINE FEW /lpf (OCC); NITRITE,URINE NEG (NEG); PH, URINE 5.5 (5.0-8.5); SQUAMOUS EPITHELIAL CELL URINE 1 /hpf (0-5); URINE COLOR LIGHT-RED (YELLW/STRAW)
[2017-03-07 12:17] LABS: AUTOMATED NEUTROPHIL # 3.5 TH/MM3 (1.8-7.7); BASOPHIL % 0.3 % (0.0-2.0); EOSINOPHIL # 0.1 TH/MM3 (0-0.4); EOSINOPHIL % 1.4 % (0.0-4.0); HEMATOCRIT 36.6 % (35.0-46.0); HEMO FLAGS DIFF FINAL; LYMPH % 39.3 % (9.0-44.0); LYMPHOCYTE # 2.6 TH/MM3 (1.0-4.8); MEAN CELL VOLUME 79.6 FL (80.0-100.0); MEAN CORPUSCULAR HGB CONC 32.7 % (32.0-36.0); MONO % 5.6 % (0.0-8.0); NEUT % 53.4 % (16.0-70.0); PLATELET COUNT 252 TH/MM3 (150-450); RED CELL DISTRIBUTION WIDTH 14.9 % (11.6-17.2); WHITE BLOOD COUNT 6.6 TH/MM3 (4.0-11.0)
--- NOTE | 2017-03-07 13:21 | RADRPT ---
EXAM DATE/TIME: 03/07/2017 12:32 [facility] COMPARISON: No previous studies available for comparison. INDICATIONS : Abnormal bleeding. MEDICAL HISTORY : . Hypertension. SURGICAL HISTORY : section. ENCOUNTER: Initial ACUITY: 1 day PAIN SCORE: 5/10 LOCATION: Bilateral pelvis MEASUREMENTS: UTERUS: 13.7 x 9.6 x 5.1 cm ENDOMETRIAL STRIPE: 10 mm RIGHT OVARY: 4.1 x 3.0 x 1.8 cm LEFT OVARY: 3.5 x 3.3 x 1.7 cm FINDINGS: UTERUS: Trace fluid is present in the cervical canal without retained products. RIGHT OVARY: 2 cm right ovarian cyst. LEFT OVARY: Ovary contains no mass or significant cystic lesion. MISCELLANEOUS: No free fluid. CONCLUSION: Mild prominence of the endometrium with trace fluid in the endocervical canal. Husam Mcnally MD FACR on March 07, 2017 at 13:19 Board Certified Radiologist. This report was verified electronically.
[2017-03-07 13:59] VITALS: BP 136/72
[2017-03-07 16:11] LABS: CHLAMYDIA PCR NOT DETECTED (NOT DETECT); NEISSERIA PCR NOT DETECTED (NOT DETECT)
[2017-03-08] MEDS ORDERED: PREN29TA PO (12:01)
[2017-04-05] MEDS ORDERED: NIFE1TAB85 PO (07:21)
== END 2017-03-07 14:10 | disposition home or self-care (01) ==
LOC: NEPC 11:00
DX: O72.2 Delayed and secondary postpartum hemorrhage (principal); N83.201 Unspecified ovarian cyst, right side
CPT/HCPCS: 76856; 81001; 84703; 85025; 87210; 87491; 87591; 93975; 99284

== ENCOUNTER 2017-05-28 17:10 | Emergency (ER) | payer SELFPAY ==
[~2017-05-28 17:10] MED LIST changes: -AFRI0.052 EACH NARE; -CLAR10CA3 PO; -FLINT2 CHEW; -OXYC1TAB63 PO; -TYLE325T PO
[2017-05-28 17:12] VITALS: BP 138/81; PULSE 70; RESP 17; TEMP 98.4; O2SAT 100
[2017-05-28] MEDS ORDERED: diphenhydrAMINE HCL 25 MG CAP PO ONE (18:00)
[2017-05-28] MEDS ORDERED: HYDR-4204 TOPICAL (18:00)
--- NOTE | 2017-05-28 18:03 | PD ---
HPI . Bedbug bite Chief Complaint: Bite or Sting Time Seen by Provider: 17:47 Travel History International Travel<30 days: No Contact w/Intl Traveler<30days: No Traveled to known affect area: No History of Present Illness HPI 21-year-old female presents emergency department for evaluation of abdominal bites on her right arm right side of her face and right eyelid. Patient denies any fever, chills, chest pain, shortness breath, malaise, abdominal pain, diarrhea, nausea. Patient denies any major medical history. She does not take any daily medication. PFSH Past Medical History Diminished Hearing: No Hypertension: Yes Tetanus Vaccination: < 5 Years ?: Unknown LMP: 3 WEEKS AGO Menopausal: No : 0 Past Surgical History Section: Yes Social History Alcohol Use: No Tobacco Use: Yes (PPD) Substance Use: No Allergies-Medications (Allergen,Severity, Reaction): Coded Allergies: No Known Allergies (Unverified Adverse Reaction, Unknown, 05/28/17) Reported Meds & Prescriptions Reported Meds & Active Scripts Active Prednisone 20 Mg Tab 40 Mg PO DAILY 3 Days Take 40 mg (2 tablets) daily for 5 days Ala-Sanju Topical (Hydrocortisone (Topical)) 2.5% Cream 1 Applic TOPICAL DIRECTED Procardia XL (Nifedipine) 30 Mg Tab 30 Mg PO DAILY Breast Pump (Device) 1 Mis Mis 1 Ea .ROUTE DIRECTED Review of Systems Except as stated in HPI: all other systems reviewed are Neg Physical Exam Narrative GENERAL: Well-nourished, well-developed 21-year-old female patient in no acute distress. Nontoxic appearing. SKIN: Multiple small erythematous spots to right side of face, right upper extremity. Right eyelid mildly edematous. HEAD: Normocephalic. Atraumatic. EYES: Right eyelid mildly edematous. No scleral icterus. No injection or drainage. NECK: Supple, trachea midline. No JVD or lymphadenopathy. CARDIOVASCULAR: Regular rate and rhythm without murmurs, gallops, or rubs. RESPIRATORY: Breath sounds equal bilaterally. No accessory muscle use. GASTROINTESTINAL: Abdomen soft, non-tender, nondistended. MUSCULOSKELETAL: No cyanosis, or edema. Data Data Last Documented VS Vital Signs Date Time Temp Pulse Resp B/P (MAP) Pulse Ox O2 Delivery O2 Flow Rate FiO2 05/28/17 18:27 05/28/17 17:12 98.4 70 17 100 Room Air Orders Orders Diphenhydramine (Benadryl) (05/28/17 18:00) Ed Discharge Order (05/28/17 18:03) [facility] Medical Decision Making Medical Screen Exam Complete: Yes Emergency Medical Condition: Yes Differential Diagnosis Different diagnosis include but are not limited to bug bite, cellulitis, contact dermatitis Narrative Course 21-year-old female presents emergency department for evaluation of bed bug bites to right upper extremity, right side of the face and right eyelid. Right eyelid is mildly edematous. No signs or symptoms of localized infection at this time. Patient instructed not to scratch the bedbug bites but to perform good skin care and keep the area clean and dry. Patient given a by mouth Benadryl at our facility. She was discharged home with hydrocortisone cream and a short dose of prednisone for the eyelid swelling. Patient secondary from the emergency Department with any worsening condition but otherwise follow-up with primary care and ensure that the bedbugs exterminated to prevent this problem from happening in the future. Diagnosis Primary Impression: Bed bug bite Qualified Codes: W57.XXXA - Bitten or stung by nonvenomous insect and other nonvenomous arthropods, initial encounter Referrals: Primary Care Physician Patient Instructions: Bed Bugs (ED), General Instructions Additional Instructions: Please return to emergency department if your symptoms return or worsen. Follow up with your primary care provider. Perform good skin care. Take Benadryl at night to help with itching. Use hydrocortisone cream as directed to help with itching and irritation Exterminate bedbugs in her house to this problem from happening in the future. Med/Other Pt SpecificInfo: Prescription(s) given Scripts Prednisone (Prednisone) 20 Mg Tab 40 MG PO DAILY for 3 Days, #3 TAB 0 Refills Take 40 mg (2 tablets) daily for 5 days Prov: Liliana Garnett 05/28/17 Hydrocortisone (Topical) (Ala-Sanju Topical) 2.5% Cream 1 APPLIC TOPICAL DIRECTED for Inflammation, #1 TUBE 0 Refills Prov: Liliana Garnett 05/28/17 Disposition: 01 DISCHARGE HOME Condition: Stable Liliana Garnett May 28, 2017 18:03
[2017-05-28] MEDS ORDERED: PRED20 PO (18:06)
--- NOTE | 2017-05-28 18:10 | PD ---
Data Data Last Documented VS Vital Signs Date Time Temp Pulse Resp B/P (MAP) Pulse Ox O2 Delivery O2 Flow Rate FiO2 05/28/17 17:12 98.4 70 17 138/81 (100) 100 Room Air Orders Orders Diphenhydramine (Benadryl) (05/28/17 18:00) Ed Discharge Order (05/28/17 18:03) MDM Supervised Visit with PJ: Yes Narrative Course The history, exam, and medical decision-making in the associated midlevel provider note were completed with my assistance. I reviewed and agree with the findings presented. I attest that I had a [id number] encounter with the patient on the same day, and personally performed and documented my assessment and findings in the medical record. *My assessment and Findings: This is a 21-year-old female who presents to the emergency department with insect bites on her right face and her right eyelid. She has some edema and erythema to the right eyelid as well as several scattered bites on the right forehead which are itchy. Patient will be discharged with a short course of prednisone and Benadryl. Diagnosis Primary Impression: Bed bug bite Qualified Codes: W57.XXXA - Bitten or stung by nonvenomous insect and other nonvenomous arthropods, initial encounter Referrals: Primary Care Physician Patient Instructions: General Instructions, Bed Bugs (ED) Additional Instruction: Please return to emergency department if your symptoms return or worsen. Follow up with your primary care provider. Perform good skin care. Take Benadryl at night to help with itching. Use hydrocortisone cream as directed to help with itching and irritation Exterminate bedbugs in her house to this problem from happening in the future. Scripts Prednisone (Prednisone) 20 Mg Tab 40 MG PO DAILY for 3 Days, #3 TAB 0 Refills Take 40 mg (2 tablets) daily for 5 days Prov: Liliana Garnett 05/28/17 Hydrocortisone (Topical) (Ala-Sanju Topical) 2.5% Cream 1 APPLIC TOPICAL DIRECTED for Inflammation, #1 TUBE 0 Refills Prov: Liliana Garnett 05/28/17 Disposition: 01 DISCHARGE HOME Condition: Stable Peggy Godinez MD May 28, 2017 18:10
== END 2017-05-28 18:27 | disposition home or self-care (01) ==
LOC: NEPD 17:10
DX: S40.861A Insect bite (nonvenomous) of right upper arm, initial encounter (principal); S00.261A Insect bite (nonvenomous) of right eyelid and periocular area, initial encounter; S00.86XA Insect bite (nonvenomous) of other part of head, initial encounter; I10 Essential (primary) hypertension; F17.200 Nicotine dependence, unspecified, uncomplicated; W57.XXXA Bitten or stung by nonvenomous insect and other nonvenomous arthropods, initial encounter
CPT/HCPCS: 99283

== ENCOUNTER 2017-08-01 17:12 | Emergency (ER) | payer OTHER | END 2017-08-01 20:38 | disposition home or self-care (01) | LOC: NEPK 17:12 | DX: J02.0 Streptococcal pharyngitis (principal); F17.200 Nicotine dependence, unspecified, uncomplicated; I10 Essential (primary) hypertension | CPT/HCPCS: 87804; 87804-59; 87880; 99283 ==